=== PATIENT | female | born 1955 | race Caucasian/White ===

== ENCOUNTER 2022-05-20 19:38 | Emergency (ER) | payer OTHER | END 2022-05-21 02:15 | disposition home or self-care (01) | LOC: ER1 19:38 | DX: S70.02XA Contusion of left hip, initial encounter (principal); Z88.2 Allergy status to sulfonamides; Z96.642 Presence of left artificial hip joint; W01.0XXA Fall on same level from slipping, tripping and stumbling without subsequent striking against object, initial encounter; Y92.830 Public park as the place of occurrence of the external cause | CPT/HCPCS: 72170; 73552; 99284 ==